=== PATIENT | female | born 1955 | race African-American/Black ===

== ENCOUNTER 2017-03-31 20:32 | Emergency (ER) | payer MEDICAID ==
[~2017-03-31] VITALS: Ht 165.1 cm; Wt 59.0 kg
[2017-03-31] MEDS ORDERED: SODIUM CHLORIDE 0.9% 1,000 ML IV ONE (21:11)
[2017-03-31 21:44] LABS: BASOPHILS % 0.8 % (0.0-2.0); EOSINOPHILS % 0.9 % (0.0-5.0); HEMATOCRIT. 41.3 % (36.0-48.0); HEMOGLOBIN. 14.6 g/dL (12.0-16.0); LYMPHOCYTES % 23.1 % (20.0-50.0); MEAN CORPUSCULAR HEMOGLOBIN 32.8 pg (28.0-32.0); MEAN CORPUSCULAR VOLUME 93.1 fL (81.0-99.0); MEAN PLATELET VOLUME 7.2 fl (7.4-10.4); MONOCYTES % 8.4 % (2.0-8.0); NEUTROPHILS % 66.8 % (40.0-76.0); PLATELET 288 x1000/uL (130-400); RED BLOOD CELL COUNT 4.44 mill/uL (4.2-5.4); RED CELL DISTRIBUTION WIDTH 12.8 % (11.6-14.6)
[2017-03-31 21:50] LABS: CHLORIDE 105 mEq/L (98-107)
[2017-03-31 21:51] LABS: PROTHROMBIN TIME 10.7 sec (9.4-11.6)
[2017-03-31 22:05] LABS: CARBON DIOXIDE 23 mEq/L (21-32)
[2017-03-31] MEDS ORDERED: POTASSIUM CHLORIDE 20MEQ TABLET SR PO ONE (22:15)
[2017-03-31 22:27] VITALS: BP 141/75
== END 2017-03-31 22:59 | disposition home or self-care (01) ==
LOC: ER 20:32
DX: R00.2 Palpitations (principal); E87.6 Hypokalemia; Z88.0 Allergy status to penicillin
CPT/HCPCS: 36415; 80053; 84443; 85025; 85610; 93005; 96360; 99285; J7030; Z7610

== ENCOUNTER 2017-04-19 06:30 | Inpatient (IN) | payer SELFPAY ==
[~2017-04-19] VITALS: Ht 162.6 cm; Wt 54.2 kg
[2017-04-19] MEDS ORDERED: MECLIZINE 25MG TABLET PO ONE (07:00)
[2017-04-19 07:19] LABS: BASOPHILS % 0.8 % (0.0-2.0); EOSINOPHILS % 0.5 % (0.0-5.0); HEMOGLOBIN. 14.7 g/dL (12.0-16.0); LYMPHOCYTES % 27.2 % (20.0-50.0); MEAN CORPUSCULAR VOLUME 94.2 fL (81.0-99.0); MEAN PLATELET VOLUME 6.8 fl (7.4-10.4); MONOCYTES % 11.6 % (2.0-8.0); NEUTROPHILS % 59.9 % (40.0-76.0); PLATELET 347 x1000/uL (130-400); RED BLOOD CELL COUNT 4.46 mill/uL (4.2-5.4); RED CELL DISTRIBUTION WIDTH 13.3 % (11.6-14.6)
[2017-04-19] MEDS ORDERED: SODIUM CHLORIDE 0.9% 1,000 ML IV ONE (07:23)
[2017-04-19 07:29] LABS: PROTHROMBIN TIME 10.6 sec (9.4-11.6)
[2017-04-19 07:31] LABS: CARBON DIOXIDE 27 mEq/L (21-32); CHLORIDE 105 mEq/L (98-107); ETHANOL BLOOD < 10 mg/dL
[2017-04-19 07:35] LABS: CREATINE KINASE 182 IU/L (26-192); TROPONIN I 0.02 ng/mL (0.00-0.04)
[2017-04-19 07:39] LABS: CLARITY URINE CLEAR (CLEAR); COLOR URINE YELLOW (YELLOW); GLUCOSE URINE NEGATIVE (NEGATIVE); KETONES URINE 1+ (NEGATIVE); LEUKOCYTE ESTERASE URINE 2+ (NEGATIVE); NITRITE URINE NEGATIVE (NEGATIVE); OCCULT BLOOD URINE 2+ (NEGATIVE); PROTEIN URINE NEGATIVE (NEGATIVE); SPECIFIC GRAVITY URINE 1.023 (1.005-1.030); UROBILINOGEN URINE 0.2 E.U./dL (0.2-1.0)
[2017-04-19 07:58] LABS: *AMPHETAMINES SCREEN URINE NEGATIVE (NEGATIVE); *BARBITURATES SCREEN URINE NEGATIVE (NEGATIVE); *BENZODIAZEPINES SCREEN URINE NEGATIVE (NEGATIVE); *COCAINE SCREEN URINE NEGATIVE (NEGATIVE); CANNABINOID URINE SCREEN PRESUMTIVE POSITIVE (NEGATIVE); METHADONE URINE SCREEN NEGATIVE (NEGATIVE); OPIATES URINE SCREEN NEGATIVE (NEGATIVE); PHENCYCLIDINE URINE SCREEN NEGATIVE (NEGATIVE)
[2017-04-19] MEDS ORDERED: LEVOFLOXACIN 500MG TABLET PO ONE (09:30)
[2017-04-19 11:51] VITALS: BP 123/83
[2017-04-19 12:00] VITALS: BP 123/83
[2017-04-19] MEDS ORDERED: MULT-1146 PO (12:45)
[2017-04-19] MEDS ORDERED: LORAZEPAM 0.5MG TABLET PO PRN (18:45)
[2017-04-19] MEDS ORDERED: ONDANSETRON HCL 4MG/2ML VIAL IV PRN (18:45)
[2017-04-19] MEDS ORDERED: MECLIZINE 25MG TABLET PO PRN (18:45)
[2017-04-19] MEDS ORDERED: MAGNESIUM/ALUMINUM HYDROXIDE/SIMETHICONE 30ML UDC PO PRN (18:45)
[2017-04-19] MEDS ORDERED: DIPHENHYDRAMINE 50MG/ML VIAL IV PRN (18:45)
[2017-04-19] MEDS ORDERED: CLONIDINE 0.1MG TABLET PO PRN (18:45)
[2017-04-19] MEDS ORDERED: ACETAMINOPHEN 325MG TABLET PO PRN (18:45)
[2017-04-19 20:00] VITALS: BP 124/57
[2017-04-19] MEDS: SODIUM CHLORIDE 0.9% INJ 3ML FLUSH IVF SCH (21:29)
[2017-04-19 23:00] LABS: UCG SCREEN NEGATIVE
[2017-04-20] VITALS: BP 115/65
[2017-04-20 04:00] VITALS: BP 104/56
[2017-04-20] MEDS: SODIUM CHLORIDE 0.9% INJ 3ML FLUSH IVF SCH ×2 (05:57→15:16)
[2017-04-20 08:00] VITALS: BP 118/67
[2017-04-20] MEDS ORDERED: SULFAMETHOXAZOLE/TRIMETHOPRIM 800/160MG TABLET PO SCH (11:00)
[2017-04-20] MEDS ORDERED: LEVOFLOXACIN 500MG TABLET PO SCH (11:00)
[2017-04-20 12:00] VITALS: BP 106/59
[2017-04-20 16:00] VITALS: BP 104/66
[2017-04-20 16:31] VITALS: BP 104/66
[2017-04-20] MEDS ORDERED: SULFAMETHOXAZOLE/TRIMETHOPRIM 400/80MG TAB PO SCH (21:00)
== END 2017-04-20 17:00 | disposition home or self-care (01) | DRG 463 ==
LOC: ER 06:30 → 5WST 07:04 → EDBEDREQTM 07:07 → EDBEDREQ 07:07 → ENRESERV 10:08
PROVIDERS: ADMIT Internal Medicine; ATTEND Internal Medicine
DX: N39.0 Urinary tract infection, site not specified (principal); R62.7 Adult failure to thrive; M54.2 Cervicalgia; R63.4 Abnormal weight loss; F45.9 Somatoform disorder, unspecified; Z60.2 Problems related to living alone; Z80.7 Family history of other malignant neoplasms of lymphoid, hematopoietic and related tissues; Z88.0 Allergy status to penicillin; Z68.20 Body mass index [BMI] 20.0-20.9, adult
CPT/HCPCS: 36415; 70490; 71010; 80053; 80305; 81001; 81025; 82550; 83690; 83735; 83880; 84443; 84484; 85025; 85610; 87086; 93005; 93970; 96360; 96361; 97162; 99285; G0482; J7030; J8597

== ENCOUNTER 2017-12-03 19:00 | Emergency (ER) | payer OTHER ==
[~2017-12-03] VITALS: Ht 154.9 cm; Wt 60.0 kg
[~2017-12-03 19:00] MED LIST: MULT-1146 PO
[2017-12-03] MEDS ORDERED: KETOROLAC 30MG/ML VIAL IM STA (20:58)
[2017-12-03 21:28] LABS: BASOPHILS % 0.8 % (0.0-2.0); CHLORIDE 103 mEq/L (98-107); EOSINOPHILS % 1.8 % (0.0-5.0); HEMATOCRIT. 43.4 % (36.0-48.0); HEMOGLOBIN. 15.4 g/dL (12.0-16.0); LYMPHOCYTES % 43.4 % (20.0-50.0); MEAN CORPUSCULAR HEMOGLOBIN 33.9 pg (28.0-32.0); MEAN CORPUSCULAR VOLUME 95.4 fL (81.0-99.0); MEAN PLATELET VOLUME 7.3 fl (7.4-10.4); MONOCYTES % 9.5 % (2.0-8.0); NEUTROPHILS % 44.5 % (40.0-76.0); PLATELET 337 x1000/uL (130-400); RED BLOOD CELL COUNT 4.55 mill/uL (4.2-5.4); RED CELL DISTRIBUTION WIDTH 13.4 % (11.6-14.6)
[2017-12-03 22:12] LABS: CLARITY URINE CLEAR (CLEAR); COLOR URINE YELLOW (YELLOW); KETONES URINE NEGATIVE (NEGATIVE); LEUKOCYTE ESTERASE URINE 1+ (NEGATIVE); NITRITE URINE NEGATIVE (NEGATIVE); OCCULT BLOOD URINE 1+ (NEGATIVE); PROTEIN URINE NEGATIVE (NEGATIVE); SPECIFIC GRAVITY URINE 1.007 (1.005-1.030); UROBILINOGEN URINE 0.2 E.U./dL (0.2-1.0)
[2017-12-04 00:41] VITALS: BP 129/75
== END 2017-12-04 01:01 | disposition home or self-care (01) ==
LOC: ER 21:08
DX: R51 Headache (principal); I10 Essential (primary) hypertension; Z88.0 Allergy status to penicillin
CPT/HCPCS: 36415; 70450; 80053; 81003; 85025; 96372; 99285; J1885